=== PATIENT | male | born 1985 | race Caucasian/White ===

== ENCOUNTER 2017-07-09 04:56 | Emergency (ER) | payer BC ==
[2017-07-09 05:24] VITALS: BP 125/75; PULSE 100; RESP 18; TEMP 98.2; O2SAT 97
[2017-07-09] MEDS ORDERED: CLIN150C14 PO (05:29)
[2017-07-09] MEDS ORDERED: TRAM50TA PO (05:29)
[2017-07-09] MEDS ORDERED: CLINDAMYCIN PHOS 600 MG/4 ML VIAL IM ONE (05:30)
--- NOTE | 2017-07-09 05:31 | PD ---
HPI Chief Complaint: Skin Problem Time Seen by Provider: 05:19 Travel History International Travel<30 days: No Contact w/Intl Traveler<30days: No Traveled to known affect area: No History of Present Illness HPI 31-year-old male presents to the emergency department for complaint of buttock pain. Patient has prior history of pilonidal cyst inflammation. Patient has been treated in the past with oral antibiotic with good relief. Patient states symptoms began on . Patient's had no fever no chills no nausea no vomiting no abdominal pain and has had no spontaneous drainage or bleeding. Patient denies any autoimmune disorder or immunosuppressive therapy. Patient states that he has never had to have incision and drainage of the site although once out of the 5 episodes that he has had he did have spontaneous drainage. Patient denies chronic medical illness other than recently seen for shoulder injury and is being followed by orthopedist. Patient denies diabetes. Patient denies injury or fall. Patient rates his pain with palpation or sitting 9-10/ 10 in intensity. Patient has taken [id number] ibuprofen aspirin and acetaminophen. Last dose of ibuprofen was at 7 PM. [facility] Past Medical History Narrative Medical Pollinosis, shoulder injury; no tobacco use; nursing notes reviewed Social History Tobacco Use: No Allergies-Medications (Allergen,Severity, Reaction): Coded Allergies: No Known Allergies (Unverified , 07/09/17) Narrative Medication motrin aspirin tylenol Review of Systems Except as stated in HPI: all other systems reviewed are Neg General / Constitutional: No: Fever, Chills HENT: No: Congestion Cardiovascular: No: Chest Pain or Discomfort Respiratory: No: Shortness of Breath Gastrointestinal: No: Nausea, Vomiting, Abdominal Pain, Hematochezia Genitourinary: No: Flank Pain Musculoskeletal: No: Myalgias, Arthralgias Skin: Positive Lumps (buttock cleft), No Rash Neurologic: No: Weakness Psychiatric: No: Anxiety Hematologic/Lymphatic: No: Lymph Node Enlargement Physical Exam Narrative GENERAL: Well-developed well-nourished male in no acute distress no respiratory distress SKIN: Warm and dry. HEAD: Normocephalic. EYES: No scleral icterus. No injection or drainage. NECK: Supple, trachea midline. No JVD or lymphadenopathy. CARDIOVASCULAR: Regular rate and rhythm without murmurs, gallops, or rubs. RESPIRATORY: Breath sounds equal bilaterally. No accessory muscle use. GASTROINTESTINAL: Abdomen soft, non-tender, nondistended. MUSCULOSKELETAL: No cyanosis, or edema. Buttock: cleft no induration no erythema no increased warmth from nonfluctuant no pointing tender to palpation BACK: Nontender without obvious deformity. No CVA tenderness. Data Data Orders Orders Clindamycin Inj (Cleocin Inj) (07/09/17 05:30) [facility] Medical Decision Making Medical Screen Exam Complete: Yes Emergency Medical Condition: Yes Medical Record Reviewed: Yes Differential Diagnosis Pilonidal cyst, abscess, cellulitis, contusion, fracture Narrative Course Discussed with patient proceeding with incision and drainage does not want to proceed with this at this time but has been successful with resolution of symptomatic cyst/abscess exacerbations in the past with antibiotic therapy. Discussed with patient probable need for definitive intervention with excision of cyst. Patient aware and wants to have trial of antibiotic. Patient encouraged to limit use of anti-inflammatories. Patient encouraged to return the emergency department for incision and drainage should his symptoms worsen or area become more amenable to incision and drainage. Diagnosis Primary Impression: Pilonidal cyst Referrals: Colon Rectal Specialist call for appointment Meatcutter Colorectal surgeon: Dr Nice Patient Instructions: General Instructions Departure Forms: Tests/Procedures, Work Release Special Instructions: no work x 1 day Additional Instructions: Monitor temperature every 4 hours with thermometer take as needed acetaminophen/ Tylenol every 4 hours for fever 100.4 heart or greater and/or ibuprofen maximum dose 800 mg maximum frequency every 8 hours as needed for fever 100.4F or greater or for pain associated with inflammation Complete course of antibiotic as prescribed Take tramadol as prescribed as needed may cause drowsiness, delayed reaction time, impaired decision, constipation and do not take this medication with alcohol or if driving or swimming Apply warm compresses Return to the emergency department for increased pain fever or any concerns Follow-up with primary care provider/colorectal surgeon call office for appointment No work 1 Med/Other Pt SpecificInfo: Prescription(s) given Scripts Tramadol (Tramadol) 50 Mg Tab 50 MG PO Q6H Y for PAIN, #7 TAB 0 Refills Prov: Tiffany Tirado MD 07/09/17 Clindamycin (Clindamycin) 150 Mg Cap 300 MG PO Q6H for Infection for 7 Days, #56 CAP 0 Refills Prov: Tiffany Tirado MD 07/09/17 Disposition: 01 DISCHARGE HOME Condition: Stable Tiffany Tirado MD Jul 09, 2017 05:31
[2017-07-09 05:35] VITALS: BP 128/85; TEMP 98.3
== END 2017-07-09 05:47 | disposition home or self-care (01) ==
LOC: PHED 04:56
DX: L05.01 Pilonidal cyst with abscess (principal); Z79.2 Long term (current) use of antibiotics
CPT/HCPCS: 10080; 96372

== ENCOUNTER 2017-07-09 17:51 | Emergency (ER) | payer BC ==
[~2017-07-09] VITALS: Ht 177.8 cm; Wt 87.0 kg
[~2017-07-09 17:51] MED LIST: CLIN150C14 PO; TRAM50TA PO
[2017-07-09 18:05] VITALS: BP 126/67; PULSE 84; RESP 18; TEMP 99.6; O2SAT 97
--- NOTE | 2017-07-09 19:33 | PD ---
HPI Chief Complaint: Skin Problem Time Seen by Provider: 18:57 Travel History International Travel<30 days: No Contact w/Intl Traveler<30days: No Traveled to known affect area: No History of Present Illness HPI 31-year-old male presents to the emergency room for pilonidal abscess recheck. He was seen in the emergency room several hours ago for the same. At that time he declined incision and drainage. He was given clindamycin in the emergency room and discharged with prescription for the same. States he took his medicine as prescribed and a few hours after taking the clindamycin felt drainage coming from the cyst. He reported immediate but minimal relief in pain after it began to drain. He denies any fever, chills, nausea, vomiting. No difficulty with bowel movements. PFSH Past Medical History Cardiovascular Problems: Yes (ENLARGED HEART) Integumentary: Yes (PYELENOIDAL CYST) Past Surgical History Abdominal Surgery: Yes (gastric) Appendectomy: Yes Social History Alcohol Use: Yes (weekend) Tobacco Use: No Substance Use: Yes (weed) Allergies-Medications (Allergen,Severity, Reaction): Coded Allergies: No Known Allergies (Unverified , 07/09/17) Reported Meds & Prescriptions Reported Meds & Active Scripts Active Tramadol (Tramadol HCl) 50 Mg Tab 50 Mg PO Q6H PRN Clindamycin (Clindamycin HCl) 150 Mg Cap 300 Mg PO Q6H 7 Days Review of Systems Except as stated in HPI: all other systems reviewed are Neg Physical Exam Narrative GENERAL: Well-nourished, well-developed male in no acute distress. Afebrile. Ambulatory. SKIN: Focused skin assessment warm/dry. There is an indurated area in the proximal intergluteal cleft which measures about 5 cm in diameter. It is fluctuant with mild pointing and drainage. There no inflammation or lymphangitis. HEAD: Normocephalic. EYES: No scleral icterus. No injection or drainage. NECK: Supple, trachea midline. No JVD or lymphadenopathy. CARDIOVASCULAR: Regular rate and rhythm without murmurs, gallops, or rubs. RESPIRATORY: Breath sounds equal bilaterally. No accessory muscle use. BACK: Nontender without obvious deformity. No CVA tenderness. Data Data Last Documented VS Vital Signs Date Time Temp Pulse Resp B/P (MAP) Pulse Ox O2 Delivery O2 Flow Rate FiO2 4/8/18 18:05 99.6 84 18 126/67 (53) 65 [facility] Medical Decision Making Medical Screen Exam Complete: Yes Emergency Medical Condition: Yes Medical Record Reviewed: Yes Differential Diagnosis Abscess, pilonidal cyst, cellulitis Narrative Course 31-year-old male presents to the emergency room for the second time today for evaluation of a pilonidal abscess. Patient came earlier and was treated with antibiotics and pain medication. States after going home it began to drain. He came back for recheck. Physical exam reveals there is an indurated area in the proximal intergluteal cleft which measures about 5 cm in diameter. It is fluctuant with mild pointing and drainage. There no inflammation or lymphangitis. To facilitate drainage, the incision was increased, see procedure note for details. Patient discharged with instructions to continue medication and follow-up with a primary care physician or return for worsening symptoms. He understands and agrees to plan. Procedures Procedure Narrative INCISION AND DRAINAGE OF ABSCESS: The area was prepped and was sterilely draped. A subcutaneous wheal of 1% lidocaine with epinephrine with a total number 4 mL was used to anesthetize the area properly. A number 11 scalpel was used to make a 1 cm incision across the area of the abscess. The abscess was drained, complex loculations were broken down, and irrigated with normal saline. Sterile dressing applied. Diagnosis Primary Impression: Pilonidal abscess Referrals: Primary Care Physician Additional Instructions: Continue medications as directed. Follow-up with a primary care physician. Return for worsening symptoms. Disposition: 01 DISCHARGE HOME Condition: Stable Ngoc Batista Jul 09, 2017 19:33
== END 2017-07-09 19:51 | disposition home or self-care (01) ==
LOC: PHED 17:51 → PHEFT 19:51
DX: L05.01 Pilonidal cyst with abscess (principal); Z79.2 Long term (current) use of antibiotics
CPT/HCPCS: 10080

== ENCOUNTER 2017-09-13 13:22 | Emergency (ER) | payer BC ==
[~2017-09-13] VITALS: Ht 177.8 cm; Wt 85.0 kg
[2017-09-13 13:24] VITALS: BP 142/89; PULSE 87; RESP 16; TEMP 97.5; O2SAT 98
--- NOTE | 2017-09-13 13:37 | PD ---
HPI . Abdominal pain Chief Complaint: Abdominal Pain Time Seen by Provider: 13:27 Travel History International Travel<30 days: No Contact w/Intl Traveler<30days: No Traveled to known affect area: No History of Present Illness HPI Patient presents with chief complaint of upper abdominal pain. Onset was yesterday. Pain comes and goes. He states that it is a bloated, indigestion feeling. He rates the severity at 5/10. Symptoms are temporarily improved by Tums and Pepto-Bismol. Associated symptoms include nausea and decreased appetite. He denies fever or diarrhea. He denies any urinary tract symptoms. PFSH Past Medical History Cardiovascular Problems: Yes (ENLARGED HEART) Integumentary: Yes (PYELENOIDAL CYST) Past Surgical History Abdominal Surgery: Yes (gastric) Appendectomy: Yes Social History Alcohol Use: Yes (weekend) Tobacco Use: No Substance Use: Yes (weed) Allergies-Medications (Allergen,Severity, Reaction): Coded Allergies: No Known Allergies (Unverified , 07/09/17) Reported Meds & Prescriptions Reported Meds & Active Scripts Active Tramadol (Tramadol HCl) 50 Mg Tab 50 Mg PO Q6H PRN Clindamycin (Clindamycin HCl) 150 Mg Cap 300 Mg PO Q6H 7 Days Review of Systems Except as stated in HPI: all other systems reviewed are Neg General / Constitutional: No: Fever, Chills Gastrointestinal: Positive: Nausea, Abdominal Pain, Loss of Appetite, No: Vomiting, Diarrhea Genitourinary: No: Urgency, Frequency, Dysuria Physical Exam Narrative GENERAL: Healthy-appearing young man in no acute distress. SKIN: warm/dry. HEAD: Normocephalic. Atraumatic. EYES: Pupils equal and round. Extraocular movements are intact. ENT: Mucous membranes pink and moist. NECK: Supple. Full range of motion without pain.. CARDIOVASCULAR: Regular rate and rhythm. Heart sounds normal. RESPIRATORY: No accessory muscle use. Clear to auscultation. Breath sounds equal bilaterally. GASTROINTESTINAL: Abdomen soft. Minimal epigastric and right upper quadrant tenderness. No guarding or rebound. Bowel sounds present. Nondistended. MUSCULOSKELETAL: No obvious deformities. Normal muscle tone. NEUROLOGICAL: Awake and alert. No obvious cranial nerve deficits. Motor grossly within normal limits. Normal speech. PSYCHIATRIC: Appropriate mood and affect; insight and judgment normal. Data Data Last Documented VS Vital Signs Date Time Temp Pulse Resp B/P (MAP) Pulse Ox O2 Delivery O2 Flow Rate FiO2 09/13/17 13:24 97.5 87 16 142/89 (106) 98 Orders Orders Complete Blood Count With Diff (09/13/17 13:32) Comprehensive Metabolic Panel (09/13/17 13:32) Lipase (09/13/17 13:32) Urinalysis - C+S If Indicated (09/13/17 13:32) Iv Access Insert/Monitor (09/13/17 13:32) Ecg Monitoring (09/13/17 13:32) Oximetry (09/13/17 13:32) Sodium Chloride 0.9% Flush (Ns Flush) (09/13/17 13:45) Sucralfate (Carafate) (09/13/17 13:45) Labs Laboratory Tests Test 09/13/17 13:45 09/13/17 14:35 White Blood Count 5.1 TH/MM3 Red Blood Count 4.62 MIL/MM3 Hemoglobin 14.8 GM/DL Hematocrit 43.4 % Mean Corpuscular Volume 93.9 FL Mean Corpuscular Hemoglobin 31.9 PG Mean Corpuscular Hemoglobin Concent 34.0 % Red Cell Distribution Width 13.1 % Platelet Count 254 TH/MM3 Mean Platelet Volume 6.8 FL Neutrophils (%) (Auto) 51.5 % Lymphocytes (%) (Auto) 38.2 % Monocytes (%) (Auto) 7.1 % Eosinophils (%) (Auto) 2.7 % Basophils (%) (Auto) 0.5 % Neutrophils # (Auto) 2.6 TH/MM3 Lymphocytes # (Auto) 2.0 TH/MM3 Monocytes # (Auto) 0.4 TH/MM3 Eosinophils # (Auto) 0.1 TH/MM3 Basophils # (Auto) 0.0 TH/MM3 CBC Comment DIFF FINAL Differential Comment Blood Urea Nitrogen 8 MG/DL Creatinine 0.93 MG/DL Random Glucose 105 MG/DL Total Protein 7.1 GM/DL Albumin 4.0 GM/DL Calcium Level 9.0 MG/DL Alkaline Phosphatase 47 U/L Aspartate Amino Transf (AST/SGOT) 20 U/L Alanine Aminotransferase (ALT/SGPT) 36 U/L Total Bilirubin 0.5 MG/DL Sodium Level 140 MEQ/L Potassium Level 3.7 MEQ/L Chloride Level 103 MEQ/L Carbon Dioxide Level 28.9 MEQ/L Anion Gap 8 MEQ/L Estimat Glomerular Filtration Rate 94 ML/MIN Lipase 161 U/L Urine Color YELLOW Urine Turbidity CLEAR Urine pH 6.0 Urine Specific [place] 1.011 Urine Protein NEG mg/dL Urine Glucose (UA) NEG mg/dL Urine Ketones NEG mg/dL Urine Occult Blood NEG Urine Nitrite NEG Urine Bilirubin NEG Urine Urobilinogen LESS THAN 2.0 MG/DL Urine Leukocyte Esterase NEG Urine RBC LESS THAN 1 /hpf Urine WBC LESS THAN 1 /hpf Microscopic Urinalysis Comment CULT NOT INDICATED MDM Medical Decision Making Medical Screen Exam Complete: Yes Emergency Medical Condition: Yes Differential Diagnosis Differential diagnosis of abdominal pain includes but is not limited to gastritis, pancreatitis, hepatitis, gastroenteritis, constipation, urinary retention, peptic ulcer disease, diverticulitis or appendicitis Narrative Course This patient presents with upper abdominal pain. His symptoms did improve with Tums and Pepto-Bismol. I have ordered Carafate. Abdominal pain labs are pending. I have not ordered any radiographic studies because his abdomen is fairly benign. He definitely does not have an acute surgical abdomen. CBC & BMP Diagram 09/13/17 13:45 Total Protein 7.1, Albumin 4.0, Calcium Level 9.0, Alkaline Phosphatase 47, Aspartate Amino Transf (AST/SGOT) 20, Alanine Aminotransferase (ALT/SGPT) 36, Total Bilirubin 0.5, Lipase 161 UA>>neg This patient is better following Carafate. I will discharge him with a prescription for Prilosec and with a referral to gastroenterology. Diagnosis Primary Impression: Abdominal pain Qualified Codes: R10.13 - Epigastric pain Referrals: Anika Aguilar MD Patient Instructions: Epigastric Pain (ED), General Instructions Med/Other Pt SpecificInfo: Prescription(s) given Scripts Omeprazole Magnesium (Prilosec) 20 Mg Tab 1 TAB PO DAILY, #30 Prov: Cass Rider MD 09/13/17 Disposition: 01 DISCHARGE HOME Condition: Stable Cass Rider MD Sep 13, 2017 13:37
[2017-09-13] MEDS ORDERED: SODIUM CHLORIDE 0.9% FLUSH 10 ML FLUSH IV FLUSH PRN (13:45)
[2017-09-13] MEDS ORDERED: SUCRALFATE 1 GM TAB PO ONE (13:45)
[2017-09-13 14:17] LABS: AUTOMATED NEUTROPHIL # 2.6 TH/MM3 (1.8-7.7); BASOPHIL % 0.5 % (0.0-2.0); EOSINOPHIL # 0.1 TH/MM3 (0-0.4); EOSINOPHIL % 2.7 % (0.0-4.0); HEMATOCRIT 43.4 % (39.0-51.0); HEMOGLOBIN 14.8 GM/DL (13.0-17.0); LYMPH % 38.2 % (9.0-44.0); MEAN CELL VOLUME 93.9 FL (80.0-100.0); MEAN CORPUSCULAR HEMOGLOBIN 31.9 PG (27.0-34.0); MEAN PLATELET VOLUME 6.8 FL (7.0-11.0); MONO % 7.1 % (0.0-8.0); MONOCYTE # 0.4 TH/MM3 (0-0.9); NEUT % 51.5 % (16.0-70.0); PLATELET COUNT 254 TH/MM3 (150-450); RED BLOOD COUNT 4.62 MIL/MM3 (4.50-5.90); RED CELL DISTRIBUTION WIDTH 13.1 % (11.6-17.2); WHITE BLOOD COUNT 5.1 TH/MM3 (4.0-11.0)
[2017-09-13 14:27] LABS: ALT (GPT) 36 U/L (12-78); AST (GOT) 20 U/L (15-37); BICARBONATE 28.9 MEQ/L (21.0-32.0); BLOOD UREA NITROGEN 8 MG/DL (7-18); CHLORIDE 103 MEQ/L (98-107); CREATININE 0.93 MG/DL (0.60-1.30); GLOMERULAR FILTRATION RATE 94 ML/MIN (>89); GLUCOSE,RANDOM 105 MG/DL (74-106); SODIUM (NA) 140 MEQ/L (136-145)
[2017-09-13 14:29] LABS: ALKALINE PHOSPHATASE 47 U/L (45-117); TOTAL BILIRUBIN ADULT 0.5 MG/DL (0.2-1.0); TOTAL PROTEIN 7.1 GM/DL (6.4-8.2)
[2017-09-13 15:01] LABS: BILIRUBIN, URINE NEG (NEG); BLOOD, URINE NEG (NEG); GLUCOSE,URINE NEG (NEG); KETONE, URINE NEG (NEG); NITRITE,URINE NEG (NEG); URINE COLOR YELLOW (YELLW/STRAW); URINE LEUKOCYTE ESTERASE NEG (NEG)
[2017-09-13] MEDS ORDERED: PRIL20TA2 PO (15:19)
== END 2017-09-13 15:55 | disposition home or self-care (01) ==
LOC: NEPD 13:22
DX: R10.13 Epigastric pain (principal); R11.0 Nausea; R63.0 Anorexia; Z86.79 Personal history of other diseases of the circulatory system
CPT/HCPCS: 80053; 81001; 83690; 85025; 99283